=== PATIENT | male | born 1995 | race Caucasian/White ===

== ENCOUNTER 2022-12-21 14:18 | Emergency (ER) | payer MEDICAID ==
[~2022-12-21] VITALS: Ht 185.4 cm; Wt 116.4 kg
[~2022-12-21 14:18] MED LIST: ALBU8.5H17 IH; GUAI1TBM19 PO; IBUP-1985 PO
[2022-12-21 14:27] VITALS: BP 154/86; PULSE 77; RESP 14; TEMP 98.1; O2SAT 98
[2022-12-21] MEDS ORDERED: IBUP-1986 PO ×3 (15:56→16:09)
[2022-12-21] MEDS ORDERED: AMOX-580 PO ×3 (15:56→16:09)
== END 2022-12-21 16:20 | disposition home or self-care (01) ==
LOC: ER 14:18
DX: K04.7 Periapical abscess without sinus (principal); F12.90 Cannabis use, unspecified, uncomplicated; Z79.2 Long term (current) use of antibiotics; Z79.899 Other long term (current) drug therapy
CPT/HCPCS: 99283

== ENCOUNTER 2023-10-24 11:13 | Emergency (ER) | payer MEDICAID ==
[~2023-10-24] VITALS: Ht 188 cm; Wt 127.0 kg
[~2023-10-24 11:13] MED LIST changes: +AMOX-580 PO; +IBUP-1986 PO
[2023-10-24] MEDS: ketorolac trometh. 30mg/ml inj. IM ONE (13:37)
[2023-10-24 13:51] VITALS: BP 133/85; PULSE 77; RESP 16; TEMP 98; O2SAT 100
[2023-10-27] MEDS ORDERED: HYDR-3965 PO (05:06)
== END 2023-10-24 13:52 | disposition home or self-care (01) ==
LOC: ER 11:14
DX: M25.521 Pain in right elbow (principal); F12.90 Cannabis use, unspecified, uncomplicated; Z79.2 Long term (current) use of antibiotics; Z79.1 Long term (current) use of non-steroidal anti-inflammatories (NSAID); Z79.899 Other long term (current) drug therapy
CPT/HCPCS: 73080; 96372; 99283; J1885

== ENCOUNTER → 2023-10-27 | Emergency (ER) | payer MEDICAID ==
[~2023-10-27] VITALS: Ht 188 cm; Wt 129.0 kg
[~2023-10-27] MED LIST changes: +HYDR-3965 PO
[2023-10-27] MEDS: midazolam 1 mg/ML 2ml injection IV ONE (04:43)
[2023-10-27 05:46] VITALS: BP 136/86; PULSE 81; RESP 18; TEMP 98.2; O2SAT 97
== END | disposition home or self-care (01) ==
LOC: ER 04:35
DX: S83.015A Lateral dislocation of left patella, initial encounter (principal); F12.90 Cannabis use, unspecified, uncomplicated; Z79.2 Long term (current) use of antibiotics; Z79.1 Long term (current) use of non-steroidal anti-inflammatories (NSAID); Z79.899 Other long term (current) drug therapy; X50.1XXA Overexertion from prolonged static or awkward postures, initial encounter; Y93.89 Activity, other specified; Y92.89 Other specified places as the place of occurrence of the external cause; Y99.8 Other external cause status
CPT/HCPCS: 27560; 73564; 99284; J2250

== ENCOUNTER 2024-01-10 23:04 | Emergency (ER) | payer MEDICAID ==
[~2024-01-10] VITALS: Ht 188 cm; Wt 126.3 kg
[~2024-01-10 23:04] MED LIST changes: -HYDR-3965 PO
[2024-01-10 23:11] VITALS: BP 142/94; PULSE 80; TEMP 97.5; O2SAT 97
[2024-01-11] MEDS ORDERED: NAPR-56 PO (01:05)
[2024-01-11] MEDS ORDERED: AMOX-117 PO (01:05)
[2024-01-11 01:09] VITALS: RESP 16
[2024-01-11] MEDS: ketorolac trometh 30MG/ML vial 30 MG/ML VIAL IM STA (01:09)
[2024-01-11] MEDS: amox tr/potassium clavulanate 875/125mg TAB PO STA (01:09)
[2024-01-11] MEDS: calcium carbonate 500mg chew tablet PO SCH (01:14)
== END 2024-01-11 01:21 | disposition home or self-care (01) ==
LOC: ER 23:04
DX: K02.9 Dental caries, unspecified (principal); F12.90 Cannabis use, unspecified, uncomplicated; Z88.0 Allergy status to penicillin; Z88.1 Allergy status to other antibiotic agents; Z88.6 Allergy status to analgesic agent
CPT/HCPCS: 96372; 99283; J1885